=== PATIENT | male | born 1960 | race Caucasian/White ===

== ENCOUNTER 2017-05-30 13:12 | Emergency (ER) | payer SELFPAY ==
[~2017-05-30] VITALS: Ht 175.3 cm; Wt 68.0 kg
[2017-05-30 13:14] VITALS: BP 150/88; PULSE 92; RESP 20; TEMP 97.6; O2SAT 96
[2017-05-30] MEDS ORDERED: LORazepam 1 MG TAB PO ONE (13:30)
[2017-05-30 13:58] LABS: AUTOMATED NEUTROPHIL # 5.8 TH/MM3 (1.8-7.7); BASOPHIL # 0.1 TH/MM3 (0-0.2); BASOPHIL % 0.7 % (0.0-2.0); EOSINOPHIL # 0.1 TH/MM3 (0-0.4); EOSINOPHIL % 0.5 % (0.0-4.0); HEMATOCRIT 41.9 % (39.0-51.0); HEMO FLAGS DIFF FINAL; LYMPHOCYTE # 3.3 TH/MM3 (1.0-4.8); MEAN CELL VOLUME 91.6 FL (80.0-100.0); MEAN CORPUSCULAR HGB CONC 33.8 % (32.0-36.0); MONO % 7.4 % (0.0-8.0); NEUT % 58.4 % (16.0-70.0); PLATELET COUNT 217 TH/MM3 (150-450); RED BLOOD COUNT 4.57 MIL/MM3 (4.50-5.90); WHITE BLOOD COUNT 9.9 TH/MM3 (4.0-11.0)
[2017-05-30 14:17] LABS: ALT (GPT) 62 U/L (12-78); ANION GAP 8 MEQ/L (5-15); AST (GOT) 79 U/L (15-37); BICARBONATE 28.6 MEQ/L (21.0-32.0); BLOOD UREA NITROGEN 10 MG/DL (7-18); CHLORIDE 104 MEQ/L (98-107); GLOMERULAR FILTRATION RATE 87 ML/MIN (>89); POTASSIUM 3.5 MEQ/L (3.5-5.1); SODIUM (NA) 141 MEQ/L (136-145)
[2017-05-30 14:19] LABS: ALKALINE PHOSPHATASE 61 U/L (45-117); TOTAL BILIRUBIN ADULT 0.5 MG/DL (0.2-1.0)
[2017-05-30 14:21] LABS: ALCOHOL 287 MG/DL (0-5)
--- NOTE | 2017-05-30 14:42 | PD ---
HPI Chief Complaint: Suicide Ideation/Attempt Time Seen by Provider: 13:23 Travel History International Travel<30 days: No Contact w/Intl Traveler<30days: No Traveled to known affect area: No History of Present Illness HPI 56 yo male. Patient arrives complaining of suicidal ideation. He has no plan. He lost his his mother 2 weeks ago. 10 days ago son overdosed on drugs. He reports drinking vodka and beer every day as much as he can. He has no homicidal ideation. He has no history of psychiatric disease. Drank alcohol today, a fifth of liquor. REPLACED BY [facility] Social History Tobacco Use: Yes Allergies-Medications (Allergen,Severity, Reaction): Coded Allergies: No Known Allergies (Unverified , 05/30/17) Review of Systems Except as stated in HPI: all other systems reviewed are Neg Physical Exam Narrative GENERAL: 56-year-old male well-nourished well-developed no acute distress SKIN: Warm and dry. HEAD: Atraumatic. Normocephalic. EYES: Pupils equal and round. No scleral icterus. No injection or drainage. ENT: No nasal bleeding or discharge. Mucous membranes pink and moist. NECK: Trachea midline. No JVD. CARDIOVASCULAR: Regular rate and rhythm. RESPIRATORY: No accessory muscle use. Clear to auscultation. Breath sounds equal bilaterally. GASTROINTESTINAL: Abdomen soft, non-tender, nondistended. Hepatic and splenic margins not palpable. MUSCULOSKELETAL: Extremities without clubbing, cyanosis, or edema. No obvious deformities. NEUROLOGICAL: Awake and alert. No obvious cranial nerve deficits. Motor grossly within normal limits. Five out of 5 muscle strength in the arms and legs. Normal speech. PSYCHIATRIC: Patient reports suicidal ideation. Data Data Last Documented VS Vital Signs Date Time Temp Pulse Resp B/P (MAP) Pulse Ox O2 Delivery O2 Flow Rate FiO2 05/30/17 16:30 05/30/17 13:14 97.6 92 20 96 Room Air Orders Orders Complete Blood Count With Diff (05/30/17 13:29) Comprehensive Metabolic Panel (05/30/17 13:29) Psych Screen (05/30/17 13:29) Drug Screen, Random Urine (05/30/17 13:29) Alcohol (Ethanol) (05/30/17 13:29) Lorazepam (Ativan) (05/30/17 13:30) Labs Laboratory Tests Test 05/30/17 13:30 White Blood Count 9.9 TH/MM3 Red Blood Count 4.57 MIL/MM3 Hemoglobin 14.2 GM/DL Hematocrit 41.9 % Mean Corpuscular Volume 91.6 FL Mean Corpuscular Hemoglobin 31.0 PG Mean Corpuscular Hemoglobin Concent 33.8 % Red Cell Distribution Width 14.0 % Platelet Count 217 TH/MM3 Mean Platelet Volume 7.8 FL Neutrophils (%) (Auto) 58.4 % Lymphocytes (%) (Auto) 33.0 % Monocytes (%) (Auto) 7.4 % Eosinophils (%) (Auto) 0.5 % Basophils (%) (Auto) 0.7 % Neutrophils # (Auto) 5.8 TH/MM3 Lymphocytes # (Auto) 3.3 TH/MM3 Monocytes # (Auto) 0.7 TH/MM3 Eosinophils # (Auto) 0.1 TH/MM3 Basophils # (Auto) 0.1 TH/MM3 CBC Comment DIFF FINAL Differential Comment Blood Urea Nitrogen 10 MG/DL Creatinine 0.90 MG/DL Random Glucose 102 MG/DL Total Protein 7.2 GM/DL Albumin 3.8 GM/DL Calcium Level 8.2 MG/DL Alkaline Phosphatase 61 U/L Aspartate Amino Transf (AST/SGOT) 79 U/L Alanine Aminotransferase (ALT/SGPT) 62 U/L Total Bilirubin 0.5 MG/DL Sodium Level 141 MEQ/L Potassium Level 3.5 MEQ/L Chloride Level 104 MEQ/L Carbon Dioxide Level 28.6 MEQ/L Anion Gap 8 MEQ/L Estimat Glomerular Filtration Rate 87 ML/MIN Urine Opiates Screen NEG Urine Barbiturates Screen NEG Urine Amphetamines Screen NEG Urine Benzodiazepines Screen NEG Urine Cocaine Screen NEG Urine Cannabinoids Screen POS Ethyl Alcohol Level 287 MG/DL [facility] Medical Decision Making Medical Screen Exam Complete: Yes Emergency Medical Condition: Yes Medical Record Reviewed: Yes Differential Diagnosis Altered mental status/psychosis due to infection/environmental exposure/ metabolic abnormality, polypharmacy, alcohol abuse/intoxication, illicit or prescribed drug abuse, malingering/secondary gain, non-organic psychiatric disease Narrative Course CBC & BMP Diagram 05/30/17 13:30 Total Protein 7.2, Albumin 3.8, Calcium Level 8.2 L, Alkaline Phosphatase 61, Aspartate Amino Transf (AST/SGOT) 79 H, Alanine Aminotransferase (ALT/SGPT) 62, Total Bilirubin 0.5 Alcohol 287 Urine drug screen positive for cannabinoids Patient is medically stable. Psychiatrist screen ordered Diagnosis Primary Impression: Suicidal ideation Additional Impressions: Alcoholism /alcohol abuse Adjustment reaction Qualified Codes: F43.20 - Adjustment disorder, unspecified Brody Carvalho MD May 30, 2017 14:42
== END 2017-05-30 18:41 | disposition left against medical advice (07) ==
LOC: NEDAMB 13:12
DX: F43.20 Adjustment disorder, unspecified (principal); F10.20 Alcohol dependence, uncomplicated; F12.90 Cannabis use, unspecified, uncomplicated; Y90.8 Blood alcohol level of 240 mg/100 ml or more; Z72.0 Tobacco use
CPT/HCPCS: 80053; 80307; 85025; 99283